=== PATIENT | male | born 1940 | race Two or more races ===

== ENCOUNTER → 2021-12-11 14:01 | Outpatient (CLI) | payer OTHER | END | disposition home or self-care (01) | LOC: LAB 14:01 | PROVIDERS: ATTEND Surgery | DX: R97.20 Elevated prostate specific antigen [PSA] (principal) ==

== ENCOUNTER 2022-01-07 07:10 | Outpatient (CLI) | payer OTHER | END 2022-01-07 07:17 | disposition home or self-care (01) | LOC: SONOGRAMA 07:10 | PROVIDERS: ATTEND Surgery | DX: R97.20 Elevated prostate specific antigen [PSA] (principal) ==